=== PATIENT | male | born 1970 | race Caucasian/White ===

== ENCOUNTER 2017-11-22 12:09 | Emergency (ER) | payer MEDICAID ==
[2017-06-13 13:21] VITALS: Ht 165.1 cm; Wt 80.7 kg
[~2017-11-22] VITALS: Ht 165.1 cm; Wt 80.7 kg
[~2017-11-22 12:09] MED LIST: ALBU8.5H IH; AMIT-108 PO; AMOX-362 PO; AZIT-18 PO; CARI-1 PO; CEFA-83 PO; CIPR-344 PO; DIVA500T98 PO; DUL100/5PT INH; FLU45SYR17 IM; FLUT12HF2 IH; FLUT16SP20 NS; HYDR-4308 PO; IPRA3AMP21 IH; LISI-362 PO; LOR5/325 PO; LORA10CA3 PO; METH4TAB66 PO; NOR25 PO; OMEP-218 PO; ONDA4TAB PO; SULF-198 PO; TOPI-119 PO; VENL150C61 PO; VENL37.594 PO; VENL75CA58 PO; ZIPR40CA14 PO
--- NOTE | 2017-11-22 12:11 | ER Report ---
History and Physical Time Seen By : 12:11 HPI/ROS TBI after a fall off of a ladder in which he sustained a SDH. Currently taking multiple anti-epileptics for MAHONEY control as well as q3 month botox. Was due for botox Nov.09, but has been having issues with insurance. Now presents to the ED with a MAHONEY similar to ones he has had before. No worse of life. No maximal at onset. No meningismus. Afebrile. Allergies: Coded Allergies: No Known Drug Allergies (Unverified , 06/13/17) Home Meds Reported Medications Butalb/Acetaminophen/Caff 50-325-40 Mg (FIORICET 50-325-40) 1 Each Tablet, 1-2 TAB PO Q4H, #30 TAB 11/22/17 Oxcarbazepine (TRILEPTAL) 300 Mg Tablet, 300 MG PO 11/22/17 Venlafaxine Hcl (EFFEXOR XR) 150 Mg Cap.er.24h, 150 MG PO QDAY 06/13/17 Carisoprodol (SOMA) 350 Mg Tablet, 350 MG PO HS, TAB 06/13/17 Hydrocodone Bit/Acetaminophen (NORCO 7.5-325 TABLET) 1 Each Tablet, 1 TAB PO Q6H Y for PRN 06/13/17 Ziprasidone Hcl (GEODON) 40 Mg Capsule, 20 MG PO BID, CAPSULE 06/13/17 Lisinopril (LISINOPRIL) 10 Mg Tablet, 10 MG PO QDAY, TAB 06/11/17 Omeprazole Magnesium (PRILOSEC OTC) 20 Mg Tablet.dr, 1 TAB PO QDAY TAKE ONE TABLET BY MOUTH ONCE A DAY 10/10/13 Discontinued Reported Medications Divalproex Sodium (DEPAKOTE) 500 Mg Tablet.dr, 1000 MG PO QHS, TAB 06/13/17 Discontinued Scripts Sulfamethoxazole/Trimet 800-160 Mg Tab (BACTRIM DS TABLET) 1 Each Tablet, 1 TAB PO Q12H, #8 TAB Prov:NISH HOOPER MD 06/15/17 Reviewed Nurses Notes: Yes Old Medical Records Reviewed: Yes Hx Smoking: No Smoking Status: Former Smoker, Light Tobacco Smoker Exposure to Second Hand Smoke?: Yes Hx Substance Use Disorder: No Hx Alcohol Use: Yes Constitutional Vital Sign - Last 24 Hours 11/22/17 11/22/17 11/22/17 11/22/17 12:09 12:14 12:15 12:24 Temp 98.1 Pulse ??? 62 68 Resp 20 B/P (MAP) 130/87 130/87 (101) Pulse Ox 92 92 O2 Delivery Room Air 11/22/17 11/22/17 11/22/17 11/22/17 12:30 12:39 12:54 13:00 Pulse 61 61 Resp 22 23 B/P (MAP) 130/97 (108) 121/72 (88) Pulse Ox 91 93 11/22/17 11/22/17 11/22/17 11/22/17 13:09 13:24 13:29 13:30 Pulse 58 66 62 Resp 18 21 22 B/P (MAP) 130/79 (96) Pulse Ox 91 93 95 11/22/17 11/22/17 11/22/17 11/22/17 13:44 13:59 14:00 14:14 Pulse 58 70 68 Resp 17 22 10 B/P (MAP) 124/80 (95) Pulse Ox 93 90 93 Intake and Output 11/22/17 11/22/17 11/23/17 15:00 23:00 07:00 Intake Total 1000 ml Balance 1000 ml Physical Exam General Appearance: The patient is alert, has no immediate need for airway protection and no current signs of toxicity. Eyes: Pupils equal and round no injection. Respiratory: Chest is non tender, lungs are clear to auscultation. Cardiac: regular rate and rhythm Musculoskeletal: Neck: Neck is supple and non tender. Extremities have full range of motion and are non tender. Skin: No rashes or lesions. DIFFERENTIAL DIAGNOSIS: After history and physical exam differential diagnosis was considered for headache including but not limited to subarachnoid hemorrhage , migraine headache, tension headache and infectious causes such as meningitis, pharyngitis and sinusitis. 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 Due for Botox, but having insurance issues. Received IV fluids, Reglan, Toradol, decadron, and IV acetaminophen. Now improved. Will d/c with same PO meds. Decision to Disposition Date: Nov 22, 2017 Decision to Disposition Time: 14:54 Depart Departure Latest Vital Signs Vital Signs Date Time Temp Pulse Resp B/P (MAP) Pulse Ox O2 Delivery O2 Flow Rate FiO2 11/22/17 14:14 68 10 93 1/19/18 14:00 124/80 (95) 11/22/17 12:14 98.1 Room Air Impression: Primary Impression: Head ache Condition: Improved Disposition: HOME OR SELF-CARE Referrals: MEI MAK DO (PCP) New Scripts Ketorolac Tromethamine (KETOROLAC TROMETHAMINE) 10 Mg Tab 10 MG PO Q6H for 10 Days, #30 TAB Prov: ILYA CAM MD 11/22/17 Patient Instructions: Acute Headache (ED) Problem Qualifiers Primary Impression: Head ache Headache type: unspecified Headache chronicity pattern: unspecified pattern Intractability: not intractable Qualified Codes: R51 - Headache ILYA CAM MD Nov 22, 2017 12:11
[2017-11-22] MEDS ORDERED: OXCA300T44 PO (12:24)
[2017-11-22] MEDS ORDERED: BUTA1TAB14 PO (12:25)
[2017-11-22] MEDS ORDERED: KETOROLAC 30 MG/ML VIAL IVP ONE (12:40)
[2017-11-22] MEDS ORDERED: NS(*) 0.9% 1000 ML BAG 1,000 ML IV ONE (12:40)
[2017-11-22] MEDS ORDERED: DEXAMETHASONE SOD PHOS 10MG/ML IVP ONE (12:40)
[2017-11-22] MEDS ORDERED: METOCLOPRAMIDE 10 MG/2 ML SDV IVP ONE (12:40)
[2017-11-22] MEDS ORDERED: ACETAMINOPHEN(*)1000 MG/100 ML 100 ML IVPB ONE (14:05)
[2017-11-22 14:30] VITALS: BP 138/86
[2017-11-22] MEDS ORDERED: KET10 PO (14:58)
== END 2017-11-22 15:10 | disposition home or self-care (01) ==
LOC: ER 12:09
DX: R51 Headache (principal)
CPT/HCPCS: 96361; 96365; 96375; 99284; J0131; J1100; J1885; J2765; J7030

== ENCOUNTER 2017-12-18 20:33 | Emergency (ER) | payer MEDICAID ==
[2017-06-13 13:21] VITALS: Wt 79.4 kg
[~2017-12-18 20:33] MED LIST changes: +BUTA1TAB14 PO; +KET10 PO; +OXCA300T44 PO
--- NOTE | 2017-12-18 20:35 | ER Report ---
History and Physical Time Seen By MD: 20:34 HPI/ROS CHIEF COMPLAINT: Right arm pain, elevated blood pressure HISTORY OF PRESENT ILLNESS: 47-year-old male with a history of traumatic brain injury, migraine headaches, on multiple antiseizure meds presents ambulatory to the ER with sudden onset 1 hour prior to arrival of right elbow and forearm aching and throbbing. Patient's took his blood pressure and got some very elevated readings 200/120. On repeat 180/110. Patient notes the pain then spread to his chest. He denies nausea, diaphoresis or shortness of breath. He has no cardiac history. Patient appears grossly uncomfortable. He has no history of neck problems. Prior to the onset of pain. He was swimming. He was not overly exerting himself. Patient denies recent illness, cough, fever or chills. Patient denies leg swelling or calf pain. Patient recently started on propranolol 40 mg he's taken 1 or 2 doses. His is wondering if this may be what caused his symptoms. It would seem unlikely. REVIEW OF SYSTEMS: Respiratory: No cough, no dyspnea. Cardiovascular: As above Gastrointestinal: No vomiting, no abdominal pain. Musculoskeletal: As above Allergies: Coded Allergies: No Known Drug Allergies (Unverified , 06/13/17) Home Meds Reported Medications Hydroxyzine HCl (Hydroxyzine HCl) 50 Mg/25 Ml Syrup, 100 12/18/17 Oxcarbazepine (TRILEPTAL) 600 Mg Tablet, 600 MG PO QAM 12/18/17 Oxcarbazepine (TRILEPTAL) 300 Mg/5 Ml Oral.susp, 300 MG PO QHS 12/18/17 Propranolol Hcl (PROPRANOLOL HCL) 40 Mg Tablet, 40 MG PO QDAY Y for ANXIETY 12/18/17 Butalb/Acetaminophen/Caff 50-325-40 Mg (FIORICET 50-325-40) 1 Each Tablet, 1-2 TAB PO Q4H, #30 TAB 11/22/17 Venlafaxine Hcl (EFFEXOR XR) 150 Mg Cap.er.24h, 150 MG PO QDAY 06/13/17 Carisoprodol (SOMA) 350 Mg Tablet, 350 MG PO HS, TAB 06/13/17 Hydrocodone Bit/Acetaminophen (NORCO 7.5-325 TABLET) 1 Each Tablet, 1 TAB PO Q6H Y for PRN 8/10/17 Ziprasidone Hcl (GEODON) 40 Mg Capsule, 20 MG PO BID, CAPSULE 06/13/17 Lisinopril (LISINOPRIL) 10 Mg Tablet, 10 MG PO QDAY, TAB 06/11/17 Omeprazole Magnesium (PRILOSEC OTC) 20 Mg Tablet.dr, 1 TAB PO QDAY TAKE ONE TABLET BY MOUTH ONCE A DAY 10/10/13 Discontinued Reported Medications Oxcarbazepine (TRILEPTAL) 300 Mg Tablet, 300 MG PO 11/22/17 Discontinued Scripts Ketorolac Tromethamine (KETOROLAC TROMETHAMINE) 10 Mg Tab, 10 MG PO Q6H for 10 Days, #30 TAB Prov:ILYA CAM MD 11/22/17 Reviewed Nurses Notes: Yes Old Medical Records Reviewed: Yes Hx Smoking: No Smoking Status: Former Smoker, Light Tobacco Smoker Exposure to Second Hand Smoke?: Yes Hx Substance Use Disorder: No Hx Alcohol Use: No Constitutional Vital Sign - Last 24 Hours 12/18/17 12/18/17 12/18/17 12/18/17 20:37 20:48 20:53 21:00 Temp 98.2 Pulse 73 64 Resp 24 13 B/P (MAP) 131/107 128/96 (107) 132/89 (103) Pulse Ox 93 94 O2 Delivery Room Air 12/18/17 12/18/17 12/18/17 12/18/17 21:03 21:18 21:23 21:28 Pulse 66 68 63 64 Resp 20 15 21 Pulse Ox 91 86 89 88 12/18/17 12/18/17 12/18/17 12/18/17 21:41 21:48 21:53 22:00 Pulse 64 63 61 Resp 24 15 22 B/P (MAP) 135/92 (106) Pulse Ox 90 88 92 Physical Exam Vital signs stable, afebrile, mild elevation of blood pressure, pulse ox normal General Appearance: The patient is alert, has no immediate need for airway protection and no current signs of toxicity. Mild distress, slightly pale appearing, HEENT: Pupils equal and round no injection. Oropharynx without redness or exudate Respiratory: Chest is non tender, lungs are clear to auscultation. No chest wall tenderness Cardiac: regular rate and rhythm Gastrointestinal: Abdomen is soft, mild epigastric tenderness, no masses, bowel sounds normal. Musculoskeletal: Neck: Neck is supple and non tender. No lymphadenopathy, no tenderness in the midline Extremities have full range of motion and are non tender. Right upper extremity with no tenderness, swelling or abnormality noted. No aggravation of symptoms with movement of elbow, wrist or shoulder. Skin: No rashes or lesions. DIFFERENTIAL DIAGNOSIS: After history and physical exam differential diagnosis was considered for chest pain including but not limited to myocardial ischemia, pericarditis pulmonary embolus, chest wall pain, pleural inflammation and pulmonary infectious causes. Medical Decision Making Data Points Result Diagram: 12/18/17202312/18/172023 Laboratory Hematology Test 12/18/17 20:24 Red Blood Count 5.03 M/uL (4.00-5.60) Mean Corpuscular Volume 94.1 fL (80.0-96.0) Mean Corpuscular Hemoglobin 32.6 pg (26.0-33.0) Mean Corpuscular Hemoglobin Concent 34.7 g/dL (32.0-36.0) Red Cell Distribution Width 13.1 % (11.5-14.5) Mean Platelet Volume 8.0 fL (7.2-11.1) Neutrophils (%) (Auto) 43.5 % (39.4-72.5) Lymphocytes (%) (Auto) 39.4 % (17.6-49.6) Monocytes (%) (Auto) 9.0 % (4.1-12.4) Eosinophils (%) (Auto) 7.0 % (0.4-6.7) Basophils (%) (Auto) 1.1 % (0.3-1.4) Nucleated RBC Relative Count (auto) 0.1 /100WBC Neutrophils # (Auto) 3.9 K/uL (2.0-7.4) Lymphocytes # (Auto) 3.5 K/uL (1.3-3.6) Monocytes # (Auto) 0.8 K/uL (0.3-1.0) Eosinophils # (Auto) 0.6 K/uL (0.0-0.5) Basophils # (Auto) 0.1 K/uL (0.0-0.1) Nucleated RBC Absolute Count (auto) 0.01 K/uL D-Dimer Quantitative (PE/DVT) < 0.27 ug/ml (0-0.50) Sodium Level 136 mmol/L (137-145) Potassium Level 4.2 mmol/L (3.5-5.0) Chloride Level 99 mmol/L (98-107) Carbon Dioxide Level 24 mmol/L (22-30) Blood Urea Nitrogen 17 mg/dl (9-21) Creatinine 0.90 mg/dl (0.66-1.25) Glomerular Filtration Rate Calc > 60.0 Random Glucose 99 mg/dl (75-110) Calcium Level 10.3 mg/dl (8.4-10.2) Total Bilirubin 0.4 mg/dl (0.2-1.3) Aspartate Amino Transf (AST/SGOT) 40 U/L (0-35) Alanine Aminotransferase (ALT/SGPT) 54 U/L (0-56) Alkaline Phosphatase 116 U/L (0-126) Troponin I < 0.012 ng/ml B-Type Natriuretic Peptide < 5 pg/ml (0-100) Total Protein 8.1 gm/dl (6.3-8.2) Albumin 4.7 g/dl (3.5-5.0) Chemistry Test 12/18/17 20:24 White Blood Count 8.9 k/uL (4.5-11.0) Red Blood Count 5.03 M/uL (4.00-5.60) Hemoglobin 16.4 g/dL (14.0-18.0) Hematocrit 47.3 % (42.0-52.0) Mean Corpuscular Volume 94.1 fL (80.0-96.0) Mean Corpuscular Hemoglobin 32.6 pg (26.0-33.0) Mean Corpuscular Hemoglobin Concent 34.7 g/dL (32.0-36.0) Red Cell Distribution Width 13.1 % (11.5-14.5) Platelet Count 207 K/uL (150-450) Mean Platelet Volume 8.0 fL (7.2-11.1) Neutrophils (%) (Auto) 43.5 % (39.4-72.5) Lymphocytes (%) (Auto) 39.4 % (17.6-49.6) Monocytes (%) (Auto) 9.0 % (4.1-12.4) Eosinophils (%) (Auto) 7.0 % (0.4-6.7) Basophils (%) (Auto) 1.1 % (0.3-1.4) Nucleated RBC Relative Count (auto) 0.1 /100WBC Neutrophils # (Auto) 3.9 K/uL (2.0-7.4) Lymphocytes # (Auto) 3.5 K/uL (1.3-3.6) Monocytes # (Auto) 0.8 K/uL (0.3-1.0) Eosinophils # (Auto) 0.6 K/uL (0.0-0.5) Basophils # (Auto) 0.1 K/uL (0.0-0.1) Nucleated RBC Absolute Count (auto) 0.01 K/uL D-Dimer Quantitative (PE/DVT) < 0.27 ug/ml (0-0.50) Glomerular Filtration Rate Calc > 60.0 Calcium Level 10.3 mg/dl (8.4-10.2) Total Bilirubin 0.4 mg/dl (0.2-1.3) Aspartate Amino Transf (AST/SGOT) 40 U/L (0-35) Alanine Aminotransferase (ALT/SGPT) 54 U/L (0-56) Alkaline Phosphatase 116 U/L (0-126) Troponin I < 0.012 ng/ml B-Type Natriuretic Peptide < 5 pg/ml (0-100) Total Protein 8.1 gm/dl (6.3-8.2) Albumin 4.7 g/dl (3.5-5.0) Coagulation Test 12/18/17 20:24 D-Dimer Quantitative (PE/DVT) < 0.27 ug/ml EKG/Imaging EKG Interpretation 12 lead EK Rhythm: normal sinus rhythm [place]: normal QRS: normal ST segments: normal, no evidence of ischemia or dysrhythmia Imaging X-ray: Two-view chest x-ray was obtained. I viewed the images myself on the PACS system. My interpretation of the images is: No infiltrate, no effusion, normal mediastinum. The radiologist interpretation had no clinically significant variation from this interpretation. ED Course/Re-evaluation Clinical Indication for ER IV: IV Access ED Course Patient was admitted to an examination room. H&P was done. The differential diagnoses was considered. On clinical examination. Patient has a variety of complaints. Sudden onset an hour ago prior to arrival. Primarily right arm aching which spread to his chest. Patient's anxious. Patient has history of traumatic brain injury. He has no history of cardiac disease. An EKG is unremarkable. Patient's medicated for pain with Toradol, Decadron, Tylenol, Zofran. His chest x-ray and diagnostic blood work are unremarkable. His troponin is normal. His d-dimer is normal. Patient's results are viewed with him and his family. Patient reports feeling much better after being medicated. He is discharged home with conservative treatment plan to follow-up with his primary care doctor. He is advised to continue on propranolol. He is advised to follow-up with his primary care for blood pressure recheck and to see if he develops any adverse effects on the propranolol in 3-5 days. Decision to Disposition Date: Dec 18, 2017 Decision to Disposition Time: 20:53 Depart Departure Latest Vital Signs Vital Signs Date Time Temp Pulse Resp B/P (MAP) Pulse Ox O2 Delivery O2 Flow Rate FiO2 12/18/17 22:00 61 22 92 12/18/17 21:41 135/92 (106) 12/18/17 20:37 98.2 Room Air Impression: Primary Impression: Right arm pain Additional Impressions: Chest pain History of traumatic brain injury History of migraine Seizure disorder Condition: Improved Disposition: HOME OR SELF-CARE Referrals: MEI MAK DO (PCP) Patient Instructions: Arm Pain (ED), Noncardiac Chest Pain (ED) Additional Instructions: Follow-up with Dr. Mak for recheck of blood pressure and heart rate in 3-5 days Problem Qualifiers Additional Impressions: Chest pain Chest pain type: unspecified Qualified Codes: R07.9 - Chest pain, unspecified JUVENTINO MEANS DO Dec 18, 2017 20:35
[2017-12-18] MEDS ORDERED: PROP40TA45 PO (20:44)
[2017-12-18] MEDS ORDERED: ONDANSETRON 4 MG/2 ML VIAL IVP ONE (20:50)
[2017-12-18] MEDS ORDERED: DEXAMETHASONE SOD PHOS 10MG/ML IVP ONE (20:50)
[2017-12-18] MEDS ORDERED: KETOROLAC 30 MG/ML VIAL IVP ONE (20:50)
[2017-12-18] MEDS ORDERED: ACETAMINOPHEN(*)1000 MG/100 ML 100 ML IVPB ONE (20:50)
--- NOTE | 2017-12-18 20:53 | EKG ---
FACILITY: [facility] PATIENT NAME: ELYSSA BOTELLO : [id number] MR: [id number] V: [id number] EXAM DATE: ORDERING PHYSICIAN: JUVENTINO MEANS TECHNOLOGIST: ARVIND Garzon Reason : CARDIAC Blood Pressure : / mmHG Vent. Rate : 069 BPM Atrial Rate : 069 BPM P-R Int : 134 ms QRS Dur : 082 ms QT Int : 348 ms P-R-T Axes : 040 054 040 degrees QTc Int : 372 ms Sinus rhythm Possible left atrial enlargement Nonspecific ST findings Baseline artifact in several leads - repeat if needed Confirmed by LATA GUADARRAMA ([id number]) on 12/19/2017 6:20:05 AM Referred By: Confirmed By:LATA GUADARRAMA
[2017-12-18] MEDS ORDERED: OXCA600T32 PO (20:58)
[2017-12-18] MEDS ORDERED: OXCA300O4 PO (20:58)
[2017-12-18 20:59] LABS: PLATELET COUNT, AUTOMATED 207 K/uL (150-450)
[2017-12-18] MEDS ORDERED: HYDR50SY (21:00)
[2017-12-18 21:41] VITALS: BP 135/92
--- NOTE | 2017-12-18 21:58 | RADIOLOGY IMAGING REPORT ---
FACILITY: [facility] - [place] PATIENT NAME: Jacinto Sifuentes : 1970 MR: [id number] V: [id number] EXAM DATE: ORDERING PHYSICIAN: JUVENTINO MEANS TECHNOLOGIST: Location: [facility] - [place] Patient: Jacinto Sifuentes : 1970 Visit/Account:[id number] Date of Sevice: 12/18/2017 CHEST PA AND LAT INDICATION: Chest pain COMPARISON: 11/01/2015 FINDINGS: The cardiac silhouette is normal in size. No pneumothorax. Clear lungs. Normal osseous st ructures. No pleural fluid. IMPRESSION: No acute finding. Report Dictated By: Nahid Eduardo MD at 12/18/2017 9:53 PM Report E-Signed By: Nahid Eduardo MD at 12/18/2017 9:54 PM WSN:[id number]
== END 2017-12-18 22:08 | disposition home or self-care (01) ==
LOC: ER 20:56
DX: M79.601 Pain in right arm (principal); R07.9 Chest pain, unspecified; G40.909 Epilepsy, unspecified, not intractable, without status epilepticus; Z87.820 Personal history of traumatic brain injury
CPT/HCPCS: 71046; 83880; 84484; 85025; 85379; 93005; 96365; 96375; 99284; J0131; J1100; J1885; J2405; 82040; 82247; 82310; 82374; 82435; 82565; 82947; 84075; 84132; 84155; 84295; 84450; 84460; 84520

== ENCOUNTER 2018-07-25 12:40 | Observation (INO) | payer MEDICAID ==
[2017-06-13 13:21] VITALS: Ht 165.1 cm; Wt 81.6 kg
[~2018-07-25] VITALS: Ht 165.1 cm; Wt 81.6 kg
[~2018-07-25 12:40] MED LIST changes: +HYDR50SY; +IPRA3AMP10 IH; -IPRA3AMP21 IH; +OXCA300O4 PO; +OXCA600T32 PO; +PROP40TA45 PO
[2018-07-25] MEDS ORDERED: ONDANSETRON 4 MG ODT TABDP SL ONE ×2 (13:24→13:25)
--- NOTE | 2018-07-25 13:24 | EKG ---
FACILITY: [facility] PATIENT NAME: ELYSSA BOTELLO : [id number] MR: [id number] V: [id number] EXAM DATE: ORDERING PHYSICIAN: CHANTELL CAM TECHNOLOGIST: Test Reason : Blood Pressure : / mmHG Vent. Rate : 065 BPM Atrial Rate : 065 BPM P-R Int : 138 ms QRS Dur : 084 ms QT Int : 404 ms P-R-T Axes : 035 050 019 degrees QTc Int : 420 ms Normal sinus rhythm Normal ECG When compared with ECG of 18-DEC-2017 20:36, Relatively unchanged Confirmed by NISH HOOPER ([id number]) on 07/25/2018 3:34:46 PM Referred By: Confirmed By:NISH HOOPER
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
[2018-07-25 13:27] LABS: PLATELET COUNT, AUTOMATED 206 K/uL (150-450)
--- NOTE | 2018-07-25 13:30 | RADIOLOGY IMAGING REPORT ---
FACILITY: [facility] - [place] PATIENT NAME: Jacinto Sifuentes : 1970 MR: [id number] V: [id number] EXAM DATE: ORDERING PHYSICIAN: CHANTELL CAM TECHNOLOGIST: Location: [facility] Patient: Jacinto Sifuentes : 1970 Visit/Account:[id number] Date of Sevice: 07/25/2018 EXAMINATION: CT Head without intravenous contrast HISTORY: Altered level of consciousness. TECHNIQUE: Axial images were obtained from the skull base to the vertex without intravenous contrast . Sagittal and coronal reformatted images are also submitted. One of the following dose optimization techniques was utilized in the performance of this exam: Autom ated exposure control; adjustment of the mA and/or kV according to the patient's size; or use of an i terative reconstruction technique. Specific details can be referenced in the facility's radiology C T exam operational policy. COMPARISON: Noncontrast head CT dated 10/21/2016. Brain MRI dated 08/23/2017. FINDINGS: Brain volume: Normal. Ventricles: Negative. Acute ischemic changes: None. Hemorrhage: None. Masses / edema: None. Hinds-white: Negative. White matter: Negative. Vessels: Negative. Extra-axial: Negative. Calvarium / skull base: Negative. Visualized sinuses / orbits: Postsurgical changes from sinus surgery with moderate mucosal thickenin g in the right frontal sinus, right sphenoid sinus, and right ethmoid air cells. IMPRESSION: No acute intracranial abnormality. Report Dictated By: Dre Espinosa MD at 07/25/2018 1:22 PM Report E-Signed By: Dre Espinosa MD at 07/25/2018 1:26 PM [id number]
[2018-07-25 13:55] LABS: INR 0.95
[2018-07-25] MEDS ORDERED: ONDANSETRON 4 MG/2 ML VIAL IVP ONE (14:15)
[2018-07-25] MEDS ORDERED: ONDANSETRON 4 MG/2 ML VIAL ONE (14:16)
[2018-07-25] MEDS ORDERED: IOPAMIDOL 76% 75 ML INFUS BTL 75 ML ONE (14:24)
[2018-07-25] MEDS ORDERED: NS(*) 0.9% 50 ML BAG 50 ML ONE (14:24)
--- NOTE | 2018-07-25 14:55 | RADIOLOGY IMAGING REPORT ---
[place] [facility] [place] Jacinto Sifuentes : 1970 MR: [id number] V: [id number] EXAM DATE: ORDERING PHYSICIAN: CHANTELL CAM TECHNOLOGIST: Location: [facility] [place] Patient: Jacinto Sifuentes : 1970 Visit/Account:[id number] Date of Sevice: 07/25/2018 Examination: CT ANGIOGRAM HEAD W/ CONTRAST Comparison: Noncontrast head CT same day and earlier. History: Altered level of consciousness. Stroke alert. Procedure: Arterial phase imaging from the posterior fossa through the vertex with 75 mL intravenous Isovue 370. Reconstruction of the source data set includes multiplanar 2D in the sagittal and coronal planes, and 3D reconstructed coronal slab MIP series. Percent stenosis is based on NASCET criteria. One of the following dose optimization techniques was utilized in the performance of this exam: Autom ated exposure control; adjustment of the mA and/or kV according to the patient's size; or use of an i terative reconstruction technique. Specific details can be referenced in the facility's radiology C T exam operational policy. Findings: The visualized distal extracranial internal carotid arteries are unremarkable. Both intracranial internal carotid arteries are within normal limits and widely patent with no eviden ce of atherosclerotic plaque. Right A1 segment is developmentally hypoplastic. The left A1 segment, anterior communicating artery, and more distal anterior cerebral arteries are unremarkable. Both middle cerebral arteries and the territorial branches are unremarkable. Dominant left vertebral artery. The basilar artery forms normally. Both posterior cerebral arteries a rise from the basilar artery with well-developed posterior communicating arteries bilaterally. Visual ized cerebellar vessels are unremarkable. Normal enhancement of the dural venous sinuses. No mass effect or midline shift. Ventricle size is within normal limits. Prior sinus surgery with mucosal inflammation in the ethmoid air cells and sphenoid sinuses. IMPRESSION: Negative CTA head. Results were discussed with Dr. Borges at 07/25/2018 2:50 PM. Report Dictated By: Dillan Means MD at 07/25/2018 2:42 PM Report E-Signed By: Dilaln Means MD at 07/25/2018 2:51 PM WSN:[id number]
--- NOTE | 2018-07-25 15:00 | RADIOLOGY IMAGING REPORT ---
FACILITY: [facility] PATIENT NAME: Jacinto Sifuentes : 1970 MR: [id number] V: [id number] EXAM DATE: ORDERING PHYSICIAN: CHANTELL CAM TECHNOLOGIST: Location: Patient: Jacinto Sifuentes : 1970 Visit/Account:[id number] Date of Sevice: 07/25/2018 Exam type: CHEST SINGLE AP History: altered mental status Comparison: December 18, 2017. Findings: The lungs are free of acute effusions infiltrates or edema. There is no evidence of a pneumothorax o r pneumomediastinum. The trachea is in midline. The cardiac silhouette is normal in size. IMPRESSION: 1. No acute cardiopulmonary process seen Report Dictated By: Dora Chavira MD at 07/25/2018 2:55 PM Report E-Signed By: Dora Chavira MD at 07/25/2018 2:56 PM [id number]
[2018-07-25] MEDS ORDERED: PROPRANOLOL HCL 20 MG TAB PO PRN (16:40)
[2018-07-25] MEDS ORDERED: CARISOPRODOL 350 MG TAB PO PRN (16:40)
[2018-07-25 16:59] VITALS: BP 136/89
--- NOTE | 2018-07-25 17:36 | History & Physical ---
History of Present Illness History of Present Illness 47yo male with h/o TBI with complications of explosive anger and difficulties with communication who was brought to the ER for an episode of altered mental status (AMS). About a week ago, he was started Disulfiram for episodic binge drinking. His gave him an ultimatum, that she would leave him unless he s tarted it. Apparently, he doesn't drink regularly, but when he does, he is difficult to be around. After it was started, he noted that it made him sleepy and he had a metallic taste in his mouth. He has since cut to half a pill daily, but still feels like it makes him sleepy. Today, he took his usual medications in the morning (at 0600). They drove to [place] for some errands. At about 1130, while he was driving, his head bobbed like he almost fell asleep. 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 He didn't know the event occurred. She took over driving. He then had the episode again and had some shaking in his right arm. They drove him to the ER. The patient remembers being told to acetone recovery worker. He doesn't report loss of consciousness. He had a similar episode a couple of years ago in [facility] where he had the head bobbing and the arm shaking. They went to the ER and the work up was negative. He just started Flonase yesterday for a sinus infection, which he has done in the past without any problems. He has not had any other medication changes or additions. He continues to have a frontal headache and sinus pressure, which has been going on for a day or so. He has noted new right hip pain, since the episode in the car. He denies f/c/cp/sob. No reported urinary or fecal incontinence. In the ER, he was not orientated, had comprehension problems and mild dysarthria in the ER. That has slowly improved. The ER physician consulted a Neurologist via the telemedicine console. History Problems: (1) TBI (traumatic brain injury) Status: Chronic (2) Traumatic intraparenchymal hemorrhage Status: Acute (3) Sinusitis Status: Acute (4) Chronic low back pain Status: Chronic Home Meds Reported Medications Hydroxyzine HCl (Hydroxyzine HCl) 50 Mg/25 Ml Syrup, 100 12/18/17 Oxcarbazepine (TRILEPTAL) 600 Mg Tablet, 600 MG PO QAM 12/18/17 Propranolol Hcl (PROPRANOLOL HCL) 40 Mg Tablet, 40 MG PO QDAY PRN for ANXIETY 12/18/17 Butalb/Acetaminophen/Caff 50-325-40 Mg (FIORICET 50-325-40) 1 Each Tablet, 1-2 TAB PO Q4H, #30 TAB 11/22/17 Venlafaxine Hcl (EFFEXOR XR) 150 Mg Cap.er.24h, 150 MG PO QDAY 06/13/17 Carisoprodol (SOMA) 350 Mg Tablet, 350 MG PO HS, TAB 06/13/17 Hydrocodone Bit/Acetaminophen (NORCO 7.5-325 TABLET) 1 Each Tablet, 1 TAB PO Q6H PRN for PRN 06/13/17 Ziprasidone Hcl (GEODON) 40 Mg Capsule, 20 MG PO BID, CAPSULE 06/13/17 Lisinopril (LISINOPRIL) 10 Mg Tablet, 10 MG PO QDAY, TAB 06/11/17 Omeprazole Magnesium (PRILOSEC OTC) 20 Mg Tablet.dr, 1 TAB PO QDAY TAKE ONE TABLET BY MOUTH ONCE A DAY 10/10/13 Discontinued Reported Medications Oxcarbazepine (TRILEPTAL) 300 Mg/5 Ml Oral.susp, 300 MG PO QHS 12/18/17 Allergies: Coded Allergies: No Known Drug Allergies (Unverified , 07/25/18) Patient History: FH: asthma BROTHER OR SISTER FH: hypertension FATHER MOTHER FH: restless leg syndrome FATHER Other Social/Family Hx . Quit drinking alcohol on June 09. No current tobacco use. Hx Smoking: No Smoking Status: Former Smoker, Light Tobacco Smoker Exposure to Second Hand Smoke?: Yes Caffeine Intake: Coffee, Soda Caffeine/Cups Per Day: daily Hx Alcohol Use: No Hx Substance Use Disorder: Yes Social Drug Use: Former Social Drugs: Meth Review of Systems All Systems Reviewed/Normal: Yes, Except as Noted Exam Vital Signs Vital Signs Date Time Temp Pulse Resp B/P (MAP) Pulse Ox O2 Delivery O2 Flow Rate FiO2 07/25/18 16:16 70 11 90 07/25/18 15:11 129/91 (104) 07/25/18 12:45 98.1 Room Air General Appearance: No Acute Distress, Other (Appears mildly sleepy. Breathing comfortably) Neuro: Other (He knows some of the events that brought him to the ER. He knows where he is. He knows the year, but thought it was August. He doesn't know the day of the week or day of the month. He has equal keno attendant/elbow flexion and extension/plantar flexion/dorsiflexion/hip flexion strength. He reports stocking glove decreased sensation to light touch from the right knee down to the foot. He is able to feel light touch in the RLE. He is able to do the heel to aviles sliding motion, but is limited on the right secodnary to right hip pain with external rotation and then flexion) Cardiovascular: Regular Rate and Rhythm Respiratory: Clear to Auscultation GI: Abd Soft and Non-Tender Musculoskeletal: Other (Pain over the right grater trochanter with deep palpation) Extremities: No Edema Integumentary: No Jaundice, No Cyanosis Medical Decision Making Data Points Result Diagram: 07/25/18 13107/25/18 1317 Item Value Date Time Total Bilirubin 0.3 mg/dl 07/25/18 1317 Aspartate Amino Transf (AST/SGOT) 35 U/L 07/25/18 1317 Alanine Aminotransferase (ALT/SGPT) 56 U/L 07/25/18 1317 Alkaline Phosphatase 130 U/L H 07/25/18 1317 Urine Barbiturates Screen Positive 07/25/18 1338 Urine Opiates Screen Negative 07/25/18 1338 Urine RBC None /HPF 07/25/18 1338 Urine WBC <1 /HPF 07/25/18 1338 Urine Squamous Epithelial Cells None /LPF 07/25/18 1338 Urine Bacteria Negative /HPF 07/25/18 1338 Prothromb Time International Ratio 0.95 07/25/18 1317 Neutrophils (%) (Auto) 47.4 % 07/25/18 1317 Lymphocytes (%) (Auto) 35.7 % 07/25/18 1317 Monocytes (%) (Auto) 7.3 % 07/25/18 1317 EKG / Imaging EKG Interpretation Vent. Rate : 065 BPM Atrial Rate : 065 BPM P-R Int : 138 ms QRS Dur : 084 ms QT Int : 404 ms P-R-T Axes : 035 050 019 degrees QTc Int : 420 ms Normal sinus rhythm Normal ECG When compared with ECG of 14-FEB-2018 20:36, Relatively unchanged Confirmed by NISH HOOPER ([id number]) on 07/25/2018 3:34:46 PM Imaging Head CTA - Negative CTA head. CXR - 1. No acute cardiopulmonary process seen Head CT - No acute intracranial abnormality. Assessment and Plan Problems: (1) Altered mental status Status: Acute Assessment & Plan: He presented with sudden onset of sleepiness while driving. He then had an episode of right arm twitching. He was started on Disulfiram a week ago and the dose has been reduced secondary to sleepiness. He was started on Flonase yesterday for a sinus infection. On exam, he is slowly improving, but still is confused to month. Also, he does have a slight decrease in sensation to light touch in a stocking glove distribution below the right knee. He was evaluated by a Neurologist via the telemedicine console who recommended the CT of the head and the CTA of the head (both were normal). The Neurologist didn't think the patient had a stroke. More than likely, the addition of Disulfiram with his other sedating medications caused him to nearly fall asleep while driving. A focal seizure cannot be ruled out, but seems less likely. He will be admitted and watched for any further events and will be restarted on his usual medications. (2) Hip pain, right Status: Acute Assessment & Plan: The patient reports right hip pain that started after the increased sleepiness event. His did have him mop for the first time, recently. He has pain over the right greater trochanter with deep palpation and has pain with flexion of the hip when it is externally rotated. He also reports decreased sensation below the right knee as mentioned above. Will follow. (3) TBI (traumatic brain injury) Status: Chronic Assessment & Plan: He fell off a ladder and incurred a left temporal parenchymal hemorrhage in 06/2015. He has a number of problems since then, but specifically with anger outbursts and communication. He is chronically on Geodon, Trileptal and Venlafaxine, which will be continued. He takes propranolol prn for anxiety, which will be continued. (4) Sinusitis Status: Acute Assessment & Plan: He chronically gets sinus problems and then gets more headaches. Will continue the Flonase that was started the day before admission. Fioricet will be held for now. (5) Chronic low back pain Status: Chronic Assessment & Plan: He chronically takes Vicodin, and Soma. Will continue those on a prn basis. Copies to: MEI MAK DO; SANDRA THIBODEAUX PRODUCTION SUPERVISOR OFF SHIFT ; Venous Thromboembolism Antithrombotics Is Pt On Any Antithrombotics?: No Exam Sepsis Risk: No Definite Risk NISH HOOPER MD Jul 25, 2018 17:36
[2018-07-25] MEDS: APAP/HYDROCODONE 325/7.5 TAB PO PRN (18:24)
[2018-07-25 20:20] VITALS: BP 126/83
[2018-07-25] MEDS ORDERED: OXcarbazepine 300 MG TAB PO SCH (21:00)
[2018-07-25] MEDS ORDERED: FLUTICASONE PROP 0.05% 16 GM SCH (21:00)
[2018-07-25] MEDS: OXcarbazepine 300 MG TAB PO SCH (21:15)
[2018-07-25] MEDS: ZIPRASIDONE 20 MG CAP PO SCH (21:16)
[2018-07-26 05:03] VITALS: BP 107/70
[2018-07-26 07:09] VITALS: BP 107/70
[2018-07-26] MEDS: ZIPRASIDONE 20 MG CAP PO SCH (08:35)
[2018-07-26] MEDS: APAP/HYDROCODONE 325/7.5 TAB PO PRN (08:35)
[2018-07-26] MEDS: OXcarbazepine 300 MG TAB PO SCH (08:36)
[2018-07-26] MEDS ORDERED: VENLAFAXINE XR 75 MG CAPCR PO SCH (09:00)
[2018-07-26] MEDS ORDERED: PANTOPRAZOLE SOD 40 MG TABEC PO SCH (09:00)
--- NOTE | 2018-07-26 09:47 | Hospitalist Depart ---
Discharge Summary Reason for Hosp/Final Diag: (1) Altered mental status Status: Resolved Hospital Course & Plan: He presented with sudden onset of sleepiness while driving. He then had an episode of right arm twitching. He was started on Disulfiram a week ago and the dose has been reduced secondary to sleepiness. He was started on Flonase yesterday for a sinus infection. On exam, he slowly improved. Also, he does have a slight decrease in sensation to light touch in a stocking glove distribution below the right knee. He was evaluated by a Neurologist via the telemedicine console who recommended the CT of the head and the CTA of the head (both were normal). The Neurologist didn't think the patient had a stroke. More than likely, the addition of Disulfiram with his other sedating medications caused him to nearly fall asleep while driving. A focal seizure cannot be ruled out, but seems less likely. Recommend stopping Disulfiram and following up with psychiatry to reevaluate regimen. (2) Hip pain, right Status: Acute Hospital Course & Plan: The patient reports right hip pain that started after the increased sleepiness event. His did have him mop for the first time, recently. He has pain over the right greater trochanter with deep palpation and has pain with flexion of the hip when it is externally rotated. He also reports decreased sensation below the right knee as mentioned above. Will follow. (3) TBI (traumatic brain injury) Status: Chronic Hospital Course & Plan: He fell off a ladder and incurred a left temporal parenchymal hemorrhage in 06/2015. He has a number of problems since then, but specifically with anger outbursts and communication. He is chronically on Geodon, Trileptal and Venlafaxine, which will be continued. He takes propra nolol prn for anxiety, which will be continued. (4) Sinusitis Status: Acute Hospital Course & Plan: He chronically gets sinus problems and then gets more headaches. Will continue the Flonase that was started the day before admission. Fioricet will be held for now. (5) Chronic low back pain Status: Chronic Hospital Course & Plan: He chronically takes Vicodin, and Soma. Will continue those on a prn basis. Departure Weight (Pounds): 180 Result Diagram: 07/25/18 1317 07/25/18 1317 Condition: Improved Discharge: Home Discharge Instructions Home Meds Reported Medications Hydroxyzine HCl (Hydroxyzine HCl) 50 Mg/25 Ml Syrup, 100 12/18/17 Oxcarbazepine (TRILEPTAL) 600 Mg Tablet, 300 MG PO BID 12/18/17 Propranolol Hcl (PROPRANOLOL HCL) 40 Mg Tablet, 40 MG PO QDAY PRN for ANXIETY 12/18/17 Butalb/Acetaminophen/Caff 50-325-40 Mg (FIORICET 50-325-40) 1 Each Tablet, 1-2 TAB PO Q4H, #30 TAB 11/22/17 Venlafaxine Hcl (EFFEXOR XR) 150 Mg Cap.er.24h, 150 MG PO QDAY 06/13/17 Carisoprodol (SOMA) 350 Mg Tablet, 350 MG PO HS, TAB 06/13/17 Hydrocodone Bit/Acetaminophen (NORCO 7.5-325 TABLET) 1 Each Tablet, 1 TAB PO Q6H PRN for PRN 06/13/17 Ziprasidone Hcl (GEODON) 40 Mg Capsule, 20 MG PO BID, CAPSULE 06/13/17 Omeprazole Magnesium (PRILOSEC OTC) 20 Mg Tablet.dr, 1 TAB PO QDAY TAKE ONE TABLET BY MOUTH ONCE A DAY 10/10/13 Discontinued Reported Medications Oxcarbazepine (TRILEPTAL) 300 Mg/5 Ml Oral.susp, 300 MG PO QHS 12/18/17 Lisinopril (LISINOPRIL) 10 Mg Tablet, 10 MG PO QDAY, TAB 06/11/17 Diet: Regular Copies to: MEI MAK DO; SANDRA THIBODEAUX CASEWORK SUPERVISOR ; Venous Thromboembolism Antithrombotics Is Pt On Any Antithrombotics?: No CRISTINA BAILEY DO Jul 26, 2018 09:47
[2018-07-26] MEDS ORDERED: INFLUENZA VIRUS VAC 0.5ML SYR IM ONLY ONE (17:00)
== END 2018-07-26 10:05 | disposition home or self-care (01) ==
LOC: ER 12:49 → MED 16:22 → INTOOBSV 16:22
PROVIDERS: ADMIT Internal Medicine; ATTEND Internal Medicine
DX: R41.82 Altered mental status, unspecified (principal); G93.40 Encephalopathy, unspecified; M25.551 Pain in right hip; Z87.820 Personal history of traumatic brain injury; J32.9 Chronic sinusitis, unspecified; M54.5 Low back pain; R51 Headache; J01.90 Acute sinusitis, unspecified
CPT/HCPCS: 36416; 70450; 70496; 71045; 80164; 80305; 81001; 82948; 84484; 85025; 85610; 85730; 90471; 90674; 93005; 99284; G0378; J2405; J7050; Q9967; S0119; 82040; 82247; 82310; 82374; 82435; 82565; 82947; 84075; 84132; 84155; 84295; 84450; 84460; 84520

== ENCOUNTER → 2018-08-11 | Outpatient (CLI) | payer MEDICAID ==
[2017-06-13 13:21] VITALS: BMI 29.6
== END ==
LOC: RESP 09:58
PROVIDERS: ATTEND Nurse Practitioner Psychiatric/Mental Health
DX: R56.9 Unspecified convulsions (principal)
CPT/HCPCS: 95819

== ENCOUNTER → 2018-09-20 | Outpatient (CLI) | payer MEDICAID ==
[2017-06-13 13:21] VITALS: BMI 29.6
[~2018-09-20] MED LIST changes: -HYDR-4308 PO; +HYDR-654 PO
== END ==
LOC: RESP 20:46
PROVIDERS: ATTEND Family Medicine
DX: G47.30 Sleep apnea, unspecified (principal); G47.61 Periodic limb movement disorder